=== PATIENT | female | born 1995 | race Two or more races ===

== ENCOUNTER 2019-10-22 09:06 | Inpatient (IN) | payer OTHER ==
[~2019-10-22] VITALS: Ht 165.1 cm; Wt 63.0 kg
[2019-10-22] MEDS ORDERED: PRENATAL PLUS1 EAC1 PO (09:20)
== END 2019-10-24 12:42 | disposition home or self-care (01) | DRG 805 ==
LOC: LDR 09:06 → OB/GYN 09:06 → LDR 12:00 → OB/GYN 18:15
PROVIDERS: ADMIT Obstetrics & Gynecology; ATTEND Obstetrics & Gynecology
PROC: 10E0XZZ Delivery of Products of Conception, External Approach (ICD-10-PCS; principal; 2019-10-22)
PROC: 4A1HXFZ Monitoring of Products of Conception, Cardiac Rhythm, External Approach (ICD-10-PCS; 2019-10-22)
PROC: 3E033VJ Introduction of Other Hormone into Peripheral Vein, Percutaneous Approach (ICD-10-PCS; 2019-10-22)
DX: O98.52 Other viral diseases complicating childbirth (principal); U07.1 COVID-19; Z37.0 Single live birth; O69.81X0 Labor and delivery complicated by cord around neck, without compression, not applicable or unspecified; Z3A.39 39 weeks gestation of pregnancy

== ENCOUNTER 2024-10-26 15:28 | Emergency (ER) | payer OTHER ==
[~2024-10-26] VITALS: Ht 165.1 cm; Wt 57.2 kg
[~2024-10-26 15:28] MED LIST: PRENATAL PLUS1 EAC1 PO
[2024-10-26] MEDS ORDERED: ONDANSETRON HCL 2 MG/ML VIAL IV ONE (16:45)
[2024-10-26] MEDS ORDERED: KETOROLAC TROMETHAMINE 30 MG VIAL IV ONE (16:45)
[2024-10-26] MEDS ORDERED: 0.9 % SODIUM CHLORIDE 1,000 ML IV SCH (16:45)
[2024-10-26] MEDS ORDERED: CEFTRIAXONE SODIUM 1,000 MG VIAL IV ONE (16:45)
[2024-10-26 17:33] LABS: URINE APPEARANCE Cloudy; URINE BILIRRUBIN Negative (NEGATIVE); URINE BLOOD Large; URINE COLOR Yellow; URINE GLUCOSE Negative (NEGATIVE); URINE KETONE 15 (NEGATIVE); URINE LEUKOCYTE Large; URINE NITRATE Positive; URINE UROBILINOGEN 1.0 E.U./dl
[2024-10-26 17:33] LABS: BASO % 0.5 % (0.1-1.2); EOS # 0.05 (0.04-0.54); EOS % 0.5 % (0.7-7.0); LYMPH # 2.04 (1.18-3.74); LYMPH % 19.8 % (19.3-53.1); MEAN PLATELET VOLUME 9.00 fl (9.4-12.4); MONO # 0.69 (0.24-0.82); MONO % 6.7 % (4.7-12.5); NEUT # 7.45 (1.56-6.13); NEUT % 72.2 % (34.0-71.1); RED CELL DISTRIBUTION WIDTH 13.2 % (11.6-14.4)
[2024-10-26 17:37] LABS: URINE BACTERIA 6414.9 uL (0.0-1933); URINE EPITHELIAL CELLS 6.4 uL (0.0-38.8); URINE RBC 303.8 uL (0.0-20.8); URINE WBC 2966.0 uL (0.0-23.2)
[2024-10-26 18:07] LABS: URINE CAST 0.87 uL (0.0-1.40); URINE MUCUS SCANT; URINE PROTEIN 100 (NEGATIVE)
[2024-10-26 18:08] LABS: TYPE CELLS SQUAMOUS
[2024-10-26 18:19] LABS: ALT/SGPT 16.0 U/L (12-78); AST/SGOT 11.0 U/L (15-37); BILIRUBIN TOTAL 0.41 mg/dL (0.3-1.2); BUN CREA RATIO 11.0 (7.0-25.0); CREATININE SERUM 0.95 mg/dL (0.55-1.02); GFR 70.04; GLOBULINA 3.9 G/DL (2.4-3.5); GLUCOSE FASTING 81.0 mg/dL (65-100); OSMOLALITY SERUM 276.0 MOSM/KG (275-295)
[2024-10-26] MEDS ORDERED: BACTRIM DS TAB1 EACH PO (21:54)
[2024-10-26] MEDS ORDERED: PYRIDIUM100 M1 PO (21:54)
== END 2024-10-26 22:14 | disposition home or self-care (01) ==
LOC: ER 15:28
PROVIDERS: General Practice
DX: R10.9 Unspecified abdominal pain (principal); R30.0 Dysuria; N39.0 Urinary tract infection, site not specified

== ENCOUNTER 2025-01-31 12:47 | Emergency (ER) | payer OTHER ==
[~2025-01-31] VITALS: Ht 165.1 cm; Wt 58.5 kg
[~2025-01-31 12:47] MED LIST changes: +BACTRIM DS TAB1 EACH PO; +PYRIDIUM100 M1 PO
[2025-01-31] MEDS ORDERED: ACETAMINOPHEN 500 MG GEL..CAP PO ONE ×2 (16:45→17:01)
[2025-01-31] MEDS ORDERED: 0.9 % SODIUM CHLORIDE 1,000 ML IV ONE (16:45)
[2025-01-31 17:39] LABS: BASO % 0.6 % (0.1-1.2); EOS # 0.19 (0.04-0.54); EOS % 5.8 % (0.7-7.0); LYMPH # 1.53 (1.18-3.74); LYMPH % 46.9 % (19.3-53.1); MEAN PLATELET VOLUME 9.50 fl (9.4-12.4); MONO # 0.35 (0.24-0.82); MONO % 10.7 % (4.7-12.5); NEUT # 1.16 (1.56-6.13); NEUT % 35.7 % (34.0-71.1); RED CELL DISTRIBUTION WIDTH 12.9 % (11.6-14.4)
[2025-01-31 17:45] LABS: ERYTHROCYTE SEDIMENTATION RATE 17 mm/hr (0-20)
[2025-01-31 17:50] LABS: URINE APPEARANCE Cloudy; URINE BILIRRUBIN Negative (NEGATIVE); URINE BLOOD Negative; URINE COLOR Dark Yellow; URINE GLUCOSE Negative (NEGATIVE); URINE KETONE 15 (NEGATIVE); URINE LEUKOCYTE Small; URINE NITRATE Negative; URINE PROTEIN 30 (NEGATIVE); URINE UROBILINOGEN 1.0 E.U./dl
[2025-01-31 17:57] LABS: URINE RBC 14.3 uL (0.0-20.8); URINE WBC 74.6 uL (0.0-23.2)
[2025-01-31 17:58] LABS: COVID-19 AG NEGATIVE (NEGATIVE)
[2025-01-31 18:01] LABS: INR 1.0
[2025-01-31 18:07] LABS: ALT/SGPT 20.0 U/L (12-78); AST/SGOT 18.0 U/L (15-37); BILIRUBIN TOTAL 0.23 mg/dL (0.3-1.2); BUN CREA RATIO 14.0 (7.0-25.0); CREATININE SERUM 0.93 mg/dL (0.55-1.02); GFR 71.79; GLOBULINA 3.9 G/DL (2.4-3.5); GLUCOSE FASTING 104.0 mg/dL (65-100); OSMOLALITY SERUM 278.0 MOSM/KG (275-295)
[2025-01-31 18:14] LABS: TYPE CELLS SQUAMOUS; URINE CAST 0.73 uL (0.0-1.40); URINE EPITHELIAL CELLS > 201.7 uL (0.0-38.8)
[2025-01-31 21:48] LABS: BASO % 0.5 % (0.1-1.2); EOS # 0.23 (0.04-0.54); EOS % 5.8 % (0.7-7.0); LYMPH # 1.73 (1.18-3.74); LYMPH % 43.8 % (19.3-53.1); MEAN PLATELET VOLUME 10.70 fl (9.4-12.4); MONO # 0.57 (0.24-0.82); NEUT # 1.38 (1.56-6.13); NEUT % 35.0 % (34.0-71.1); RED CELL DISTRIBUTION WIDTH 12.8 % (11.6-14.4)
[2025-01-31 22:24] LABS: BASOPHIL MAN 1.0 %; EOSINOPHIL MAN 8.0 %; LYMPHOCYTE MAN 32.0 %; MONO % 14.4 % (4.7-12.5); MONOCYTE MAN 13.0 %; NEUTROPHILS MAN 34.0 %
== END 2025-01-31 23:03 | disposition home or self-care (01) ==
LOC: ER 12:48
DX: B34.9 Viral infection, unspecified (principal); D69.6 Thrombocytopenia, unspecified; R53.1 Weakness; Z20.822 Contact with and (suspected) exposure to COVID-19